=== PATIENT | male | born 1940 | race Caucasian/White ===

== ENCOUNTER 2021-05-01 06:32 | Inpatient (IN) ==
[~2021-05-01 06:32] MED LIST: Vancomycin 1,000 MG, Sodium Chloride IRRigation 1,000 ML IR ONE
[2021-05-01] MEDS ORDERED: Acetaminophen IV 1,000 MG/100 ML BAG IVPB ONE (06:56)
[2021-05-01] MEDS ORDERED: Famotidine 20 MG/2 ML VIAL IVP ONE (06:56)
[2021-05-01] MEDS ORDERED: CeFAZolin Syr 2,000MG/20 ML 2,000 MG/20 ML SYRINGE IVPB ONE (07:06)
[2021-05-01] MEDS ORDERED: Vancomycin 1,500 MG/265 ML IV.SOLN IVPB ONE (07:08)
[2021-05-01] MEDS ORDERED: Ringers Solution, Lactated 1,000 ML IVC SCH (07:15)
[2021-05-01] MEDS ORDERED: *HR* Succinylcholine 200 MG/10 ML VIAL IVP ONE (07:17)
[2021-05-01] MEDS ORDERED: *HR* Propofol 200 MG/20 ML VIAL IVP ONE (07:17)
[2021-05-01] MEDS ORDERED: Lidocaine -MPF 2% 2 ML VIAL ONE (07:17)
[2021-05-01] MEDS ORDERED: *HR* Rocuronium Bromide 50 MG/5 ML VIAL ONE ×2 (07:17→09:26)
[2021-05-01] MEDS ORDERED: Ondansetron 4 MG/2 ML VIAL ONE (07:17)
[2021-05-01] MEDS ORDERED: Sugammadex Sodium 200 MG/2 ML VIAL IV ONE (07:17)
[2021-05-01] MEDS ORDERED: *HR* FentaNYL (PF) 100 MCG/2 ML VIAL ONE (07:22)
[2021-05-01] MEDS ORDERED: Heparin 1,000 UNITS/500 mL 500 ML ONE ×3 (07:23→08:03)
[2021-05-01] MEDS ORDERED: Isovue-300 50ML VIAL ONE (07:26)
[2021-05-01] MEDS ORDERED: Morphine Sulfate 2 MG/ML SYRINGE IVP PRN (08:34)
[2021-05-01] MEDS ORDERED: *HR* OxyCODONE Immed Rel 5 MG TABLET PO PRN ×3 (08:34→12:17)
[2021-05-01] MEDS ORDERED: Ondansetron 4 MG/2 ML VIAL IVP PRN ×2 (08:34→12:17)
[2021-05-01] MEDS ORDERED: *HR* Heparin 5,000 UNIT/ML VIAL ONE (09:18)
[2021-05-01] MEDS ORDERED: *HR* HYDROMORPHONE 2 MG/ML VIAL ONE (10:21)
[2021-05-01] MEDS ORDERED: *HR* HYDROcodone/Acet 5/325 mg TABLET PO PRN ×2 (12:17)
[2021-05-01] MEDS ORDERED: Dextrose Gel 15 GM/37.5 ML TUBE PO PRN ×2 (12:17)
[2021-05-01] MEDS ORDERED: Acetaminophen 325 MG TABLET PO PRN ×2 (12:17)
[2021-05-01] MEDS ORDERED: Naloxone 0.4 MG/ML INJ IVP PRN (12:17)
[2021-05-01] MEDS ORDERED: D5% in Water 1,000 ML IVC PRN (12:17)
[2021-05-01] MEDS ORDERED: *HR* Labetalol 20 MG/4 ML SYRINGE IVP PRN (12:17)
[2021-05-01] MEDS ORDERED: *HR* Dextrose 50 % in Water (Vial) 50 ML VIAL IVP PRN (12:17)
[2021-05-01] MEDS ORDERED: 0.9 % Sodium Chloride 1,000 ML IVC SCH (12:17)
[2021-05-01] MEDS: CeFAZolin 2 GM/120 ML BAG IVPB SCH (13:12)
[2021-05-01] MEDS: Gabapentin 300 MG CAPSULE PO SCH ×3 (13:13→21:21)
[2021-05-01] MEDS: *HR* Metoprolol 5 MG/5 ML VIAL IVP SCH ×2 (13:13→17:40)
[2021-05-01] MEDS: Insulin LISPRO 300 UNITS/3 ML VIAL SUBQ SCH (16:24)
[2021-05-01] MEDS ORDERED: Insulin LISPRO 300 UNITS/3 ML VIAL SUBQ SCH (21:00)
[2021-05-02] MEDS: *HR* Metoprolol 5 MG/5 ML VIAL IVP SCH ×3 (02:26→12:05)
[2021-05-02] MEDS: CeFAZolin 2 GM/120 ML BAG IVPB SCH (03:13)
[2021-05-02 04:46] LABS: Basophils % 0.3 %; Hematocrit 36.8 % (37.5-50.1); Hemoglobin 11.3 g/dL (12.9-16.9); Immature Granulocytes % 0.4 % (0-4); Lymphocytes # 1.6 K/mcL (0.6-4.6); Lymphocytes % 13.7 %; Mean Corpuscular HGB Conc 30.7 g/dL (31.6-35.5); Mean Corpuscular Hemoglobin 28.3 pg (28.0-33.3); Mean Corpuscular Volume 92.2 fL (83.0-100.0); Mean Platelet Volume 12.8 fL (9.4-12.4); Monocytes # 1.1 K/mcL (0.0-1.3); Monocytes % 9.6 %; Neutrophils # 8.6 K/mcL (1.6-8.9); Platelet Count 227 K/mcL (140-400); Red Blood Count 3.99 M/mcL (4.19-5.50); Red Cell Distribution Width 13.8 % (11.5-14.5); White Blood Count 11.3 K/mcL (4.3-11.1)
[2021-05-02 05:15] LABS: BUN/Creatinine Ratio 22 (6-26); Blood Urea Nitrogen 24 mg/dL (8-23); Calcium 8.9 mg/dL (8.6-10.3); Carbon Dioxide 23 mEq/L (23-29); Chloride 105 mEq/L (98-107); Glucose 109 mg/dL (70-105); Osmolality,Calculated 293 (280-300); Sodium 139 mEq/L (136-145); eGFR For African Americans > 60 (> 60); eGFR For Non-African Americans > 60 (> 60)
[2021-05-02] MEDS ORDERED: *HR* Heparin 5,000 UNIT/ML VIAL SQ SCH ×2 (06:00)
[2021-05-02] MEDS: Insulin LISPRO 300 UNITS/3 ML VIAL SUBQ SCH ×2 (07:25→11:13)
[2021-05-02] MEDS ORDERED: Tiotropium 10 INH DOSE IH ONE (07:52)
[2021-05-02] MEDS: Gabapentin 300 MG CAPSULE PO SCH (08:06)
[2021-05-02] MEDS ORDERED: Folic Acid 1 MG TABLET PO SCH (09:00)
[2021-05-02] MEDS ORDERED: Fenofibrate 54 MG TABLET PO SCH (09:00)
[2021-05-02] MEDS ORDERED: Loratadine 10 MG TABLET PO SCH (09:00)
[2021-05-02] MEDS ORDERED: Furosemide 20 MG TABLET PO SCH (09:00)
[2021-05-02] MEDS ORDERED: lisinopriL 20 MG TABLET PO SCH (09:00)
[2021-05-02] MEDS ORDERED: Mirtazapine 15 MG TABLET PO SCH (09:00)
[2021-05-02] MEDS ORDERED: Fluticasone Propionate Nasal 50 MCG/SPRAY BOTTLE NS SCH (09:00)
[2021-05-02] MEDS ORDERED: Tiotropium 10 INH DOSE IH SCH (10:00)
[2021-05-02 11:05] VITALS: PULSE 77
[2021-05-02 11:11] VITALS: BP 105/68; TEMP 97.4; O2SAT 92
== END 2021-05-02 14:25 | disposition home or self-care (01) | DRG 272 ==
LOC: SAMDAY 06:32 → 2NNU 11:34
PROVIDERS: ADMIT Surgery; ATTEND Surgery

== ENCOUNTER 2021-12-25 11:40 | Inpatient (IN) ==
[2021-12-25 14:09] LABS: Basophils % 0.5 %; Eosinophils # 0.9 K/mcL (0.0-0.6); Eosinophils % 11.3 %; Hematocrit 36.1 % (37.5-50.1); Immature Granulocytes % 0.4 % (0-4); Lymphocytes # 1.4 K/mcL (0.6-4.6); Lymphocytes % 16.7 %; Mean Corpuscular HGB Conc 30.5 g/dL (31.6-35.5); Mean Corpuscular Hemoglobin 26.3 pg (28.0-33.3); Mean Corpuscular Volume 86.2 fL (83.0-100.0); Mean Platelet Volume 12.4 fL (9.4-12.4); Monocytes # 0.7 K/mcL (0.0-1.3); Monocytes % 8.4 %; Neutrophils # 5.2 K/mcL (1.6-8.9); Platelet Count 255 K/mcL (140-400); Red Blood Count 4.19 M/mcL (4.19-5.50); Segmented Neutrophils % 62.7 %; White Blood Count 8.2 K/mcL (4.3-11.1)
[2021-12-25 14:30] LABS: BUN/Creatinine Ratio 15 (6-26); Blood Urea Nitrogen 18 mg/dL (8-23); Calcium 9.4 mg/dL (8.6-10.3); Carbon Dioxide 26 mEq/L (23-29); Chloride 103 mEq/L (98-107); Glucose 106 mg/dL (70-105); Osmolality,Calculated 284 (280-300); Potassium 4.8 mEq/L (3.5-5.1); Sodium 136 mEq/L (136-145); Troponin I < 0.03 ng/mL (< 0.04); eGFR For African Americans > 60 (> 60); eGFR For Non-African Americans 59 (> 60)
[2021-12-25 14:34] LABS: Bilirubin,Urine Negative (Negative); Blood,Urine Small (Negative); Clarity,Urine Clear (Clear); Color,Urine Light-Yellow (Yellow); Glucose,Urine (UA) Normal (Normal); Ketones,Urine Negative (Negative); Leukocyte Esterase,Urine Negative (Negative); Mucus,Urine Few per lpf (None-Few); Nitrite,Urine Negative (Negative); Protein,Urine Trace mg/dL (Neg-Trace); RBC,Urine 50-100 per hpf (0-3); Renal Epithelial Cells,Urine Few per hpf (None-Few); Specific Gravity,Urine 1.012 (1.010-1.025); Squamous Epithelial Cell,Urine Few per hpf (None-Few); Transitional Epi Cells,Urine Few per hpf (None-Few); Urobilinogen,Urine Normal (Normal); WBC,Urine 0-3 per hpf (0-3)
[2021-12-25] MEDS ORDERED: Furosemide 40 MG/4 ML VIAL IVP ONE (15:09)
[2021-12-25 16:03] LABS: Influenza A PCR Negative (Negative); Influenza B PCR Negative (Negative); Resp. Syncytial Virus PCR Negative (Negative); SARS-CoV-2 by PCR (In House) Negative (Negative)
[2021-12-25] MEDS ORDERED: Mag Hydrox/Al Hydrox/Simeth 30 ML UDC PO PRN (16:15)
[2021-12-25] MEDS ORDERED: Naloxone 0.4 MG/ML INJ IVP PRN (16:15)
[2021-12-25] MEDS ORDERED: Perflutren Lipid Microsphere 1.3 ML in 0.9 % Sodium Chloride 8.7 ML IVP PRN (16:17)
[2021-12-25] MEDS: *HR* Heparin 5,000 UNIT/ML VIAL SQ SCH (17:27)
[2021-12-25] MEDS ORDERED: Dextrose Gel 15 GM/37.5 ML TUBE PO PRN ×2 (17:48)
[2021-12-25] MEDS ORDERED: D5% in Water 1,000 ML IVC PRN (17:48)
[2021-12-25] MEDS ORDERED: *HR* Dextrose 50 % in Water (Syg) 50 ML SYRINGE IVP PRN (17:48)
[2021-12-25] MEDS: Insulin LISPRO 300 UNITS/3 ML VIAL SUBQ SCH (20:21)
[2021-12-25] MEDS: Melatonin 3 MG TABLET PO PRN (22:50)
[2021-12-25] MEDS: Gabapentin 300 MG CAPSULE PO SCH (22:50)
[2021-12-26] MEDS: *HR* Heparin 5,000 UNIT/ML VIAL SQ SCH ×2 (05:34→17:39)
[2021-12-26 06:13] LABS: Hemoglobin 10.2 g/dL (12.9-16.9); Mean Corpuscular HGB Conc 30.9 g/dL (31.6-35.5); Mean Corpuscular Hemoglobin 26.9 pg (28.0-33.3); Mean Corpuscular Volume 87.1 fL (83.0-100.0); Mean Platelet Volume 12.8 fL (9.4-12.4); Platelet Count 253 K/mcL (140-400); Red Blood Count 3.79 M/mcL (4.19-5.50); Red Cell Distribution Width 15.3 % (11.5-14.5); White Blood Count 8.7 K/mcL (4.3-11.1)
[2021-12-26 07:06] LABS: BUN/Creatinine Ratio 17 (6-26); Blood Urea Nitrogen 22 mg/dL (8-23); Calcium 9.3 mg/dL (8.6-10.3); Carbon Dioxide 30 mEq/L (23-29); Chloride 104 mEq/L (98-107); Glucose 101 mg/dL (70-105); Osmolality,Calculated 291 (280-300); Potassium 4.4 mEq/L (3.5-5.1); Sodium 139 mEq/L (136-145); eGFR For African Americans > 60 (> 60); eGFR For Non-African Americans 53 (> 60)
[2021-12-26] MEDS ORDERED: Furosemide 40 MG/4 ML VIAL IVP SCH (09:00)
[2021-12-26] MEDS: Insulin LISPRO 300 UNITS/3 ML VIAL SUBQ SCH ×4 (09:06→20:34)
[2021-12-26] MEDS: Gabapentin 300 MG CAPSULE PO SCH ×3 (09:13→20:23)
[2021-12-26] MEDS: Melatonin 3 MG TABLET PO PRN (20:23)
[2021-12-27] MEDS: *HR* Heparin 5,000 UNIT/ML VIAL SQ SCH ×2 (05:06→16:42)
[2021-12-27 08:15] LABS: Hematocrit 36.9 % (37.5-50.1); Hemoglobin 11.1 g/dL (12.9-16.9); Mean Corpuscular HGB Conc 30.1 g/dL (31.6-35.5); Mean Corpuscular Hemoglobin 26.2 pg (28.0-33.3); Mean Platelet Volume 12.4 fL (9.4-12.4); Platelet Count 263 K/mcL (140-400); Red Blood Count 4.24 M/mcL (4.19-5.50); Red Cell Distribution Width 15.4 % (11.5-14.5); White Blood Count 7.3 K/mcL (4.3-11.1)
[2021-12-27] MEDS: Bumetanide 1 MG/4 ML VIAL IVP SCH ×2 (08:27→17:07)
[2021-12-27] MEDS: Insulin LISPRO 300 UNITS/3 ML VIAL SUBQ SCH ×4 (08:27→20:13)
[2021-12-27] MEDS: cephALEXin 500 MG CAPSULE PO SCH ×2 (08:28→20:13)
[2021-12-27] MEDS: Gabapentin 300 MG CAPSULE PO SCH ×3 (08:28→20:13)
[2021-12-27 08:34] LABS: BUN/Creatinine Ratio 23 (6-26); Blood Urea Nitrogen 27 mg/dL (8-23); Calcium 9.6 mg/dL (8.6-10.3); Carbon Dioxide 25 mEq/L (23-29); Chloride 103 mEq/L (98-107); Glucose 157 mg/dL (70-105); Osmolality,Calculated 288 (280-300); Potassium 4.7 mEq/L (3.5-5.1); Sodium 135 mEq/L (136-145); eGFR For African Americans > 60 (> 60); eGFR For Non-African Americans 58 (> 60)
[2021-12-27] MEDS: Melatonin 3 MG TABLET PO PRN (22:58)
[2021-12-28] MEDS: *HR* Heparin 5,000 UNIT/ML VIAL SQ SCH ×2 (05:15→16:33)
[2021-12-28] MEDS: Gabapentin 300 MG CAPSULE PO SCH ×3 (08:42→22:21)
[2021-12-28] MEDS: cephALEXin 500 MG CAPSULE PO SCH ×2 (08:42→22:21)
[2021-12-28] MEDS: Bumetanide 1 MG/4 ML VIAL IVP SCH (08:42)
[2021-12-28] MEDS: Insulin LISPRO 300 UNITS/3 ML VIAL SUBQ SCH ×4 (08:42→22:21)
[2021-12-28] MEDS: Hydrocortisone 1% OINT 28 GM TUBE TP SCH ×2 (12:04→22:22)
[2021-12-28 13:43] LABS: BUN/Creatinine Ratio 27 (6-26); Blood Urea Nitrogen 37 mg/dL (8-23); Calcium 9.7 mg/dL (8.6-10.3); Carbon Dioxide 27 mEq/L (23-29); Chloride 100 mEq/L (98-107); Glucose 217 mg/dL (70-105); Osmolality,Calculated 299 (280-300); Potassium 4.6 mEq/L (3.5-5.1); Sodium 137 mEq/L (136-145); eGFR For African Americans > 60 (> 60); eGFR For Non-African Americans 50 (> 60)
[2021-12-28] MEDS: Ondansetron ODT 4 MG TAB.RAPDIS SL PRN ×2 (14:52→23:01)
[2021-12-28] MEDS ORDERED: Albuterol 2.5 MG/3 ML NEBULIZER IH PRN (16:24)
[2021-12-28] MEDS: predniSONE 20 MG TABLET PO SCH (16:33)
[2021-12-28] MEDS ORDERED: Bumetanide 1 MG TABLET PO SCH (17:00)
[2021-12-28 17:36] LABS: Adenovirus Not Detected (Not Detect); Bordetella Pertussis Not Detected (Not Detect); Chlamydophila pneumoniae Not Detected (Not Detect); Coronavirus 229E Not Detected (Not Detect); Coronavirus HKU1 Not Detected (Not Detect); Coronavirus NL63 Not Detected (Not Detect); Coronavirus OC43 Not Detected (Not Detect); Human Metapneumovirus Not Detected (Not Detect); Human Rhinovirus/Enterovirus Not Detected (Not Detect); Influenza A Subtype 2009 H1 Not Detected (Not Detect); Influenza B Not Detected (Not Detect); Mycoplasma pneumoniae Not Detected (Not Detect); Parainfluenza Virus 1 Not Detected (Not Detect); Parainfluenza Virus 2 Not Detected (Not Detect); Parainfluenza Virus 3 Not Detected (Not Detect); Parainfluenza Virus 4 Not Detected (Not Detect); Respiratory Syncytial Virus Not Detected (Not Detect); SARS-CoV-2 Not Detected (Not Detect)
[2021-12-28] MEDS: Albuterol 2.5 MG/3 ML NEBULIZER IH SCH ×2 (19:55→23:42)
[2021-12-28] MEDS: Melatonin 3 MG TABLET PO PRN (23:43)
[2021-12-29] MEDS: Albuterol 2.5 MG/3 ML NEBULIZER IH SCH ×6 (03:49→23:27)
[2021-12-29] MEDS: *HR* Heparin 5,000 UNIT/ML VIAL SQ SCH ×2 (04:44→17:21)
[2021-12-29] MEDS: cephALEXin 500 MG CAPSULE PO SCH ×2 (07:53→20:33)
[2021-12-29] MEDS: Gabapentin 300 MG CAPSULE PO SCH ×3 (07:53→20:33)
[2021-12-29] MEDS: predniSONE 20 MG TABLET PO SCH (07:53)
[2021-12-29] MEDS: Insulin LISPRO 300 UNITS/3 ML VIAL SUBQ SCH ×4 (07:54→20:33)
[2021-12-29] MEDS: Hydrocortisone 1% OINT 28 GM TUBE TP SCH ×2 (08:01→20:36)
[2021-12-29] MEDS ORDERED: Simethicone 80 MG TAB.CHEW PO PRN (12:09)
[2021-12-29 14:28] LABS: Hematocrit 34.8 % (37.5-50.1); Hemoglobin 10.3 g/dL (12.9-16.9); Mean Corpuscular HGB Conc 29.6 g/dL (31.6-35.5); Mean Corpuscular Hemoglobin 25.8 pg (28.0-33.3); Mean Corpuscular Volume 87.2 fL (83.0-100.0); Mean Platelet Volume 12.7 fL (9.4-12.4); Platelet Count 253 K/mcL (140-400); Red Blood Count 3.99 M/mcL (4.19-5.50); Red Cell Distribution Width 15.3 % (11.5-14.5); White Blood Count 8.5 K/mcL (4.3-11.1)
[2021-12-29 14:45] LABS: Calcium 9.5 mg/dL (8.6-10.3); Potassium 5.2 mEq/L (3.5-5.1)
[2021-12-29] MEDS: Melatonin 3 MG TABLET PO PRN (23:16)
[2021-12-30 01:32] LABS: Hemoglobin 9.5 g/dL (12.9-16.9); Mean Corpuscular Volume 87.5 fL (83.0-100.0)
[2021-12-30 01:35] LABS: Red Cell Distribution Width 15.5 % (11.5-14.5)
[2021-12-30 01:37] LABS: Hematocrit 31.4 % (37.5-50.1); Immature Platelets 12.1 % (1.1-6.1); Mean Corpuscular HGB Conc 30.3 g/dL (31.6-35.5); Mean Corpuscular Hemoglobin 26.5 pg (28.0-33.3); Mean Platelet Volume 13.4 fL (9.4-12.4); Red Blood Count 3.59 M/mcL (4.19-5.50); White Blood Count 10.1 K/mcL (4.3-11.1)
[2021-12-30 01:49] LABS: Calcium 9.3 mg/dL (8.6-10.3)
[2021-12-30] MEDS: Albuterol 2.5 MG/3 ML NEBULIZER IH SCH ×3 (03:27→11:23)
[2021-12-30] MEDS: *HR* Heparin 5,000 UNIT/ML VIAL SQ SCH (04:54)
[2021-12-30] MEDS: Gabapentin 300 MG CAPSULE PO SCH (08:44)
[2021-12-30] MEDS: Insulin LISPRO 300 UNITS/3 ML VIAL SUBQ SCH ×2 (08:44→11:31)
[2021-12-30] MEDS: Hydrocortisone 1% OINT 28 GM TUBE TP SCH (08:44)
[2021-12-30] MEDS: predniSONE 20 MG TABLET PO SCH (08:44)
[2021-12-30] MEDS: cephALEXin 500 MG CAPSULE PO SCH (08:44)
[2021-12-30 11:12] VITALS: PULSE 78; TEMP 98.4; O2SAT 94
[2021-12-30 11:22] VITALS: BP 120/61
== END 2021-12-30 14:57 | disposition home or self-care (01) | DRG 291 ==
LOC: EMEROOARM 11:40 → 3BNU 11:40
PROVIDERS: ADMIT Family Medicine; ATTEND Family Medicine